=== PATIENT | male | born 1985 | race Caucasian/White ===

== ENCOUNTER 2016-10-01 17:27 | Emergency (ER) | payer OTHER ==
[~2016-10-01] VITALS: Ht 177.8 cm; Wt 97.5 kg
[~2016-10-01 17:27] MED LIST: ACETAMINOPHEN; AZIT250T94 PO; DENIES; DICLOFENAC; IBUP-1542 PO; SULF1TAB31 PO
[2016-10-01 17:49] VITALS: Ht 177.8 cm; Wt 97.5 kg
[2016-10-01] MEDS ORDERED: PRED50TA PO (18:36)
[2016-10-01] MEDS ORDERED: ACYC800T57 PO (18:36)
[2016-10-01] MEDS ORDERED: DEXT15DR4 OP (18:36)
--- NOTE | 2016-10-01 18:41 | ERD ---
ER Documentation Chief Complaint Date/Time DATE: 10/01/16 TIME: 18:38 Chief Complaint Pt with L sided assymetry, can't close eyes, x 2 days. HPI 31-year-old male presents here in emergency department for complaint of numbness and tingling on the left face, unable to close the left eye or 2 days. Patient denies any other focal weakness. Patient denies any headache. Patient denies any dizziness. Patient denies any trauma in the head. Patient denies any vomiting. Patient denies any altered level of consciousness. Patient denies any changes in balance or vision. Patient denies any changes in memory. ROS All systems reviewed and are negative except as per history of present illness. Medications Home Meds Active Scripts Dextran 70/Hypromellose (Artificial Tears Eye Drops) 15 Ml Drops, 4 ML OP Q6, # 1 BOTTLE Prov:BRENDAN HOOVER [employer] 10/01/16 Prednisone* (Prednisone*) 50 Mg Tablet, 50 MG PO DAILY, #5 TAB Prov:BRENDAN HOOVER [employer]ACH[employer] 10/01/16 Acyclovir* (Zovirax*) 800 Mg Tablet, 800 MG PO 5 TIMES DAILY for 7 Days, TAB Prov:BRENDAN HOOVER [employer]ING [employer]ACH[employer] 10/01/16 Ibuprofen* (Motrin*) 600 Mg Tab, 600 MG PO Q6H Y for PAIN AND OR ELEVATED TEMP, #30 TAB Prov:BRENDAN HOOVER [employer] 03/04/16 Azithromycin* (Zithromax*) 250 Mg Tablet, 250 MG PO .ClotildePACK DIRECTED, #6 TAB TAKE 500 MG (2 TABS) THE FIRST DAY THEN 250 MG (1 TAB) DAYS 2-5 Prov:BRENDAN HOOVER [employer] 03/04/16 Reported Medications Sulfamethoxazole-Trimethoprim (Bactrim DS Tablet) Unknown Strength Tab, PO BID, #20 TAB 03/04/16 [diclofenac-tylenol] Unknown Strength No Conflict Check 03/04/16 [Denies] No Conflict Check 11/21/09 Allergies Allergies: Coded Allergies: Penicillins (Verified Allergy, Intermediate, 03/04/16) PMhx/Soc Medical and Surgical Hx: pt denies Medical Hx, pt denies Surgical Hx History of Surgery: No Hx Neurological Disorder: No Hx Respiratory Disorders: No Hx Cardiac Disorders: No Hx Miscellaneous Medical Probl: No Hx Alcohol Use: No Hx Substance Use: No Hx Tobacco Use: No FmHx Family History: No coronary disease, No diabetes, No other Physical Exam Vitals Vital Signs Date Time Temp Pulse Resp B/P Pulse Ox O2 Delivery O2 Flow Rate FiO2 10/01/16 17:49 68.0 67 18 127/82 98 Physical Exam GENERAL: The patient is well developed and appropriate for usual state of health, in no apparent distress. HEENT: Atraumatic. Unable to completely close left eye. Ears: Normal tympanic membrane, no erythema or bulging. No ear canal swelling. No ear discharge. Nose : normal nasal turbinates, no erythema or swelling. Normal nasal discharge. Loss of left nasolabial folds. Throat: oropharynx clear. No tonsillar swelling or tonsillar exudates. No lymphadenopathy. CHEST: Clear to auscultation bilaterally. There are no rales, wheezes or rhonchi. HEART: Regular rate and rhythm. No murmurs, clicks, rubs or gallops. No S3 or S4. ABDOMEN: Soft, nontender and nondistended. Good bowel sounds. No rebound or guarding. No gross peritonitis. No gross organomegaly or masses. No Wells sign or McBurney point tenderness. BACK: No midline or flank tenderness. EXTREMITIES: Equal pulses bilaterally. There is no peripheral clubbing, cyanosis or edema. No focal swelling or erythema. Full range of motion. Grossly neurovascularly intact. NEURO: Alert and oriented. Cranial nerves 2-12 intact except for the cranial nerve VII, facial nerve paralysis noted. No forehead sparing noted. Motor strength in all 4 extremities with 5/5 strength. Sensation grossly intact. Normal speech and gait. Negative Romberg sign. Negative pronator drift. SKIN: There is no apparent rash or petechia. The skin is warm and dry. HEMATOLOGIC AND LYMPHATIC: There is no evidence of excessive bruising or lymphedema. No gross cervical, axillary, or inguinal lymphadenopathy. 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 No suspicion for acute stroke. Negative Romberg sign. Negative pronator drift. Other neurologic exams are normal.There is low suspicion for neurological emergencies at this time since patients neurologic exam is normal. Patient did not have any altered level consciousness, vomiting, changes in balance or memory and did not have any head injury. CT scan of the brain not indicated at this time. Patient was given for acyclovir, prednisone, artificial tears, patient is advised to follow-up with primary care doctor in 1-2 days for reevaluation of symptoms. Patient was advised to return to emergency department for any worsening symptoms. Departure Diagnosis: Primary Impression: Simmons's palsy Condition: Stable Patient Instructions: Simmons's Palsy BRENDAN HOOVER NP Oct 01, 2016 18:40
== END 2016-10-01 18:32 | disposition home or self-care (01) ==
LOC: FTE 17:27 → E/R 18:32
DX: G51.0 Bell's palsy (principal)
CPT/HCPCS: 99282

== ENCOUNTER 2017-05-28 08:35 | Emergency (ER) | payer OTHER ==
[~2017-05-28] VITALS: Ht 177.8 cm; Wt 96.5 kg
[~2017-05-28 08:35] MED LIST changes: +ACYC800T57 PO; +DEXT15DR4 OP; +PRED50TA PO
[2017-05-28 08:37] VITALS: Ht 177.8 cm; Wt 96.5 kg
--- NOTE | 2017-05-28 09:15 | ERD ---
ER Documentation Chief Complaint Date/Time DATE: 05/28/17 TIME: 09:[address] AND LEFT EAR PAIN X 2 DAYS HPI 32 year old nusrat comes in with left side sore throat and left ear pain for 2 days. Pain is described as sharp, worse with swallowing but has been able to handle his secretions. He denies cough, rhinorrhea. He denies fever, trouble swallowing, voice changes. ROS All systems reviewed and are negative except as per history of present illness. Medications Home Meds Active Scripts Ibuprofen* (Motrin*) 600 Mg Tab, 600 MG PO Q6, #30 TAB Prov:VANNA LOPEZ PA-C 05/28/17 Azithromycin* (Zithromax*) 250 Mg Tablet, 250 MG PO .ZPACK DIRECTED, #6 TAB TAKE 500 MG (2 TABS) THE FIRST DAY THEN 250 MG (1 TAB) DAYS 2-5 Prov:VANNA LOPEZ PA-C 05/28/17 Dextran 70/Hypromellose (Artificial Tears Eye Drops) 15 Ml Drops, 4 ML OP Q6, # 1 BOTTLE Prov:BRENDAN HOOVER NP 10/01/16 Prednisone* (Prednisone*) 50 Mg Tablet, 50 MG PO DAILY, #5 TAB Prov:BRENDAN HOOVER NP 10/01/16 Acyclovir* (Zovirax*) 800 Mg Tablet, 800 MG PO 5 TIMES DAILY for 7 Days, TAB Prov:BRENDAN HOOVER NP 10/01/16 Ibuprofen* (Motrin*) 600 Mg Tab, 600 MG PO Q6H Y for PAIN AND OR ELEVATED TEMP, #30 TAB Prov:BRENDAN HOOVER NP 03/04/16 Azithromycin* (Zithromax*) 250 Mg Tablet, 250 MG PO .ZPACK DIRECTED, #6 TAB TAKE 500 MG (2 TABS) THE FIRST DAY THEN 250 MG (1 TAB) DAYS 2-5 Prov:BRENDAN HOOVER NP 03/04/16 Reported Medications Sulfamethoxazole-Trimethoprim (Bactrim DS Tablet) Unknown Strength Tab, PO BID, #20 TAB 03/04/16 [diclofenac-tylenol] Unknown Strength No Conflict Check 03/04/16 [Denies] No Conflict Check 11/21/09 Allergies Allergies: Coded Allergies: Penicillins (Verified Allergy, Intermediate, 03/04/16) PMhx/Soc History of Surgery: No Hx Neurological Disorder: No Hx Respiratory Disorders: No Hx Cardiac Disorders: No Hx Miscellaneous Medical Probl: No Hx Alcohol Use: No Hx Substance Use: No Hx Tobacco Use: No Smoking Status: Never smoker Physical Exam Vitals Vital Signs Date Time Temp Pulse Resp B/P Pulse Ox O2 Delivery O2 Flow Rate FiO2 05/28/17 08:37 99.5 91 18 131/76 98 Physical Exam General: Well-developed, well-nourished. The patient appears in no acute distress. HEENT: Head is normocephalic, atraumatic. No scleral icterus. Neck: Supple. Nontender. Oropharynx is erythematous, Exudate to the left tonsil left tonsil has swelling. Uvula is midline. No abscess seen. There is no trismus.TMs are bulging, nonerythematous Lungs: Clear to auscultation. Normal air movement. Heart: Regular rate and rhythm. S1 and S2 are normal. No murmurs, gallops, or rubs. Abdomen: Nondistended. Extremities: No clubbing or cyanosis. Moving extremities x 4. No weakness. Neurologic: Alert and oriented 3. No focal deficits. Normal speech and gait. Skin: Normal turgor. No rash or lesions. Results 24 hrs Current Medications Medications (Trade) Dose Ordered Sig/Marcos Route PRN Reason Start Time Stop Time Status Last Admin Dose Admin Acetaminophen (Tylenol Tab) 650 mg ONCE ONCE PO 05/28/17 09:30 05/28/17 09:31 DC 05/28/17 09:11 Lidocaine (Xylocaine (Viscous)) 15 ml ONCE ONCE PO 05/28/17 09:30 05/28/17 09:31 DC 05/28/17 09:11 Procedures/MDM 32-year-old male presents emergency department with acute pharyngitis, there is tonsillar exudate, with left ear pain, patient is initial rapid strep is negative, throat culture was also obtained. He was advised to continue taking ibuprofen, Tylenol for his pain. If he has any worsening symptoms he is to return sooner. Antibiotics were prescribed and directed to fill based on the throat culture results. Departure Diagnosis: Primary Impression: Sore throat Condition: VANNA Bhandari PA-C May 28, 2017 09:15
[2017-05-28] MEDS ORDERED: ACETAMINOPHEN 325 MG TAB PO ONE (09:30)
[2017-05-28] MEDS ORDERED: LIDOCAINE 2% VISC 15 ML CUP PO ONE (09:30)
[2017-05-28] MEDS ORDERED: IBUP-1542 PO (10:03)
[2017-05-28] MEDS ORDERED: AZIT250T94 PO (10:03)
== END 2017-05-28 10:19 | disposition home or self-care (01) ==
LOC: FTE 08:35
DX: J02.9 Acute pharyngitis, unspecified (principal)
CPT/HCPCS: 87070; 87880; Z7502; Z7610; 99283